=== PATIENT | female | born 1945 | race Caucasian/White ===

== ENCOUNTER → 2016-12-10 | Day surgery (SDC) | payer MEDICARE, OTHER ==
[2016-12-09 07:51] VITALS: BMI 33.7
[~2016-12-10] MED LIST: DEXAMETHASONE 4 MG/ML VIAL IV PRN; DEXAMETHASONE 4 MG/ML VIAL ONE; DIAZEPAM 5 MG TAB PO PRN; FENTANYL 100 MCG/2 ML VIAL IV PRN; FENTANYL 100 MCG/2 ML VIAL ONE; HYDROCODONE 5 MG/ACETAMIN 325 MG TAB PO PRN; KETOROLAC TROMETH 30 MG/ML VIAL IV PRN; KETOROLAC TROMETH 30 MG/ML VIAL ONE; LABETALOL 20 MG/4 ML SYRINGE IV PRN; LR 1,000 ML IV ONE; LR 1,000 ML IV SCH; MIDAZOLAM 2 MG/2 ML VIAL ONE; NS 1,000 ML IV SCH; NS 250 ML IV SCH; ONDANSETRON HCL 4 MG/2 ML VIAL IV PRN; ONDANSETRON HCL 4 MG/2 ML VIAL ONE; PROPOFOL 200 MG/20 ML VIAL IV ONE; ROCURONIUM 50 MG/5 ML VIAL IV ONE; SCOPOLAMINE TRANSDERMAL PATCH TOP PRN; hydrALAZINE 20 MG/ML VIAL IV PRN
--- NOTE | 2016-12-10 07:07 | PCM.PROCED ---
Procedure Note DATE OF PROCEDURE: 12/10/16 PREOPERATIVE DIAGNOSIS: Post-operative Pain Control. POSTOPERATIVE DIAGNOSIS: Same PROCEDURE: Brachial Plexus Block at interscalene PERFORMING PROVIDER: Kanchan Pierce Jr, MD TIME OUT: Completed MEDICATIONS: 30cc of Bupivacaine 0.5% Plain NEEDLE: STIMUPLEX 20G STERILE BARRIERS: Cap, mask, sterile gown, sterile gloves, sterile drape used. COMPLICATIONS: None. BLOOD LOSS: 0 cubic centimeters. PROCEDURE FINDINGS AND TECHNIQUE: At the request of the Operative Surgeon and patient, a Brachial Plexus Block was performed for post-operative pain relief. Risk, benefits and alternatives of the procedure were explained. Informed consent was obtained and surgical site confirmed with patient and chart. Time out was performed. Pulse oximetry, EKG and BP monitoring were established.. The right neck was prepped and draped in a sterile manner. Skin anesthesia was obtained with 1% Xylocaine infiltration. The Brachial plexus was visualized by ultrasound and an image is appended. (see chart) A Stimuplex needle was inserted in the proximity of the nerves. Under direct visualization local anesthetic was injected in incremental volumes of 5 ml with negative aspirations throughout. There was no pain on injection. B-Smart manometer used. A peripheral nerve stimulator was used to assist in localizing the brachial plexus. Appropriate paresthesia and/or muscle response was noted at 0.5mA current. No muscle response noted at 2mA or less. Patient tolerated the procedure well without complications and the case was continued under general anesthesia as was the request of the patient.
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
--- NOTE | 2016-12-10 08:47 | PCM.DCS92 ---
Discharge Outpatient Note Additional Instructions: Instructions given: 12/10/16 Prescriptions (given at the office) Diet as tolerated Discharge Instructions: Shoulder Arthroscopy * [Ultrasling to operative arm , DO NOT remove] * Apply ice to the surgical shoulder for 15-20 minutes out of each hour while awake for the first 2 days post-op, then apply as often as needed to control swelling and pain * Keep Bandage clean and dry * May shower after Physical Therapy appointment * Take Aspirin 325 mg TWICE a day for a month * Take stool softener while taking pain medication Follow up in office as scheduled - Call office for any additional concerns. [phone]) Follow up with Physical therapy as scheduled
[2016-12-10 09:09] VITALS: TEMP 97
--- NOTE | 2016-12-10 09:46 | HIMOP ---
DATE OF PROCEDURE: 12/10/2016 PREOPERATIVE DIAGNOSES: Rotator cuff tear, right shoulder impingement. POSTOPERATIVE DIAGNOSES: Small rotator cuff tear, right shoulder impingement, synovitis. OPERATION: 1. Arthroscopic rotator cuff repair, right shoulder. 2. Arthroscopic subacromial decompression. 3. Arthroscopic synovectomy. 4. Examination under anesthesia of right shoulder. RECEIVER: Talita Darden PA-C ANESTHESIA: General with interscalene block. DRAINS: None. BLOOD LOSS: None. COMPLICATIONS: None. DISPOSITION: Stable to recovery. PROCEDURE: An interscalene block was placed on the right shoulder in the preop holding area. The patient was then taken back to the surgical suite, where general anesthesia was induced. She was positioned in the beach chair positioner. The right shoulder was examined. It was noted to have full range of motion and was ligamentously stable. The right shoulder and arm was then prepped and draped in the standard sterile fashion. Bony landmarks were outlined with a marking pen. An 18- gauge spinal needle was inserted posteriorly into the glenohumeral joint, which was insufflated with 60 mL of sterile saline solution. The skin was cut posteriorly with an 11-blade establishing a standard posterior portal through which the arthroscopy trocar and cannula were introduced into the glenohumeral joint. Inflow was placed on the scope. The arthroscope was introduced. Standard anterior mid glenoid working portal was established using an inside-out technique. Diagnostic glenohumeral arthroscopy was carried out. The subscapularis tendon appeared normal. The anterior glenohumeral ligaments appeared normal. Biceps tendon appeared normal as did its medial chaka and the anchor of the biceps tendon was intact. There is no sign of a SLAP lesion or Bankart lesion or any labral tear for that matter. The articular surface of the glenoid and humeral head appeared normal. Supraspinatus demonstrated a small full-thickness tear over at anterior aspect. This was debrided with the shaver. The greater tuberosity was debrided down to bleeding bone with a shaver as well. The remainder of the supraspinatus and infraspinatus and teres minor tendons all appeared normal. No other pathology was noted within the glenohumeral joint. The cannulas were then placed in the subacromial space. There was significant synovitis and bursitis present in the subacromial space. Synovectomy was performed, and a bursectomy. Hemostasis was achieved throughout the case with the radiofrequency wand, which was also used for debridement. A direct lateral portal was then established. The lateral aspect of the greater tuberosity was debrided with the shaver. The scorpion suture passer were used to place a horizontal mattress stitch of fiber tape through the torn edge of the supraspinatus. This was then brought down laterally on the greater tuberosity with Arthrex 4.75 x 24.5 BioComposite SwiveLock SP suture anchor, which was inserted into the bone obtaining good purchase. The tails of the fiber tape were then cut. The repair was inspected and noted to be quite secure. She had a type 2 acromion with signs of impingement and an anterior acromioplasty was performed completing the subacromial decompression. There was no pathology noted at the AC joint. All debris was evacuated. Final hemostasis was achieved. The arthroscopic instruments were then removed and 3 portals were closed with 3-0 Prolene sutures. Sterile dressings were applied and an UltraSling. The patient was extubated and taken to the recovery room in stable condition. She tolerated the procedure well without immediate complications. [id number]
[2016-12-10 09:54] VITALS: BP 147/79; PULSE 93
--- NOTE | 2016-12-10 10:37 | SC.ANESPOS ---
Post-Anesthesia Note LOC: Fully Awake Post-Anesthesia Assessment: Awake, Returned to Baseline, Hemodynamically Stable , Pain Control Adequate Phase I & II Recovery Complete: Yes Apparent Anesthesia Complication: No : N - Vital Signs Blood Pressure: 147/79 Pulse: 93 Resp Rate: 18 O2 Sat: 97 Temp: 97.0 F
== END ==
LOC: CPSC 06:17
PROVIDERS: ATTEND Orthopaedic Surgery
PROC: 0RNJ4ZZ Release Right Shoulder Joint, Percutaneous Endoscopic Approach (ICD-10-PCS; 2016-12-10)
PROC: 0LQ14ZZ Repair Right Shoulder Tendon, Percutaneous Endoscopic Approach (ICD-10-PCS; principal; 2016-12-10 07:15)
DX: M75.121 Complete rotator cuff tear or rupture of right shoulder, not specified as traumatic (principal); M75.41 Impingement syndrome of right shoulder; M65.811 Other synovitis and tenosynovitis, right shoulder; E03.9 Hypothyroidism, unspecified; K21.9 Gastro-esophageal reflux disease without esophagitis; E78.5 Hyperlipidemia, unspecified; E78.00 Pure hypercholesterolemia, unspecified; E55.9 Vitamin D deficiency, unspecified; M19.90 Unspecified osteoarthritis, unspecified site; Z79.899 Other long term (current) drug therapy
CPT/HCPCS: 29826; 29827; C1713; J0171; J1100; J1885; J2250; J2405; J2704; J3010; J3490